=== PATIENT | female | born 1955 | race Caucasian/White ===

== ENCOUNTER 2019-11-04 04:41 | Inpatient (IN) | payer OTHER ==
[~2019-11-04] VITALS: Ht 167.6 cm; Wt 77.9 kg
[2019-11-04] MEDS ORDERED: PANTOPRAZOLE 40 MG/10 ML VIAL INJ IV STA (06:52)
[2019-11-04] MEDS ORDERED: LABETALOL HCL 5 MG/ML 4ML SYRINGE IV ONE (07:00)
[2019-11-04 08:41] LABS: Basophils # (auto) 0 10 ^3/uL (0-0.2); Basophils % (auto) 0.1 % (0.0-2.0); Eosinophils # (auto) 0 10 ^3/uL (0-0.8); Hematocrit 39.9 % (36.0-46.0); Hemoglobin 13.5 g/dL (12.2-16.2); Lymphocytes # (auto) 0.3 10 ^3/uL (0.4-5.4); Lymphocytes % (auto) 4.2 % (10.0-50.0); Mean Corpuscular Hemoglobin 33.1 pg (28.0-32.0); Mean Corpuscular Hgb Conc. 33.9 g/dL (32.0-36.0); Mean Corpuscular Volume 97.7 fL (80.0-100.0); Monocytes # (auto) 0.3 10 ^3/uL (0-1.3); Monocytes % (auto) 3.4 % (0.0-12.0); Neutrophils # (auto) 6.9 10 ^3/uL (1.6-8.6); Neutrophils % (auto) 92.3 % (37.0-80.0); Platelet Count (auto) 201 10^3/uL (140-450); Red Blood Cells 4.08 10^6/uL (4.0-5.20); Red Cell Distribution Width 12.6 % (11.8-14.3); White Blood Cell 7.5 10^3/uL (4.4-10.8)
[2019-11-04 08:55] LABS: Anion Gap 11 (5-15); Blood Urea Nitrogen 17 mg/dL (7-18); Calcium 9.3 mg/dL (8.5-10.1); Carbon Dioxide 26 mmol/L (21-32); Chloride 105 mmol/L (98-107); Glucose 217 mg/dL (74-106); Lipase 143 U/L (73-393); Magnesium 2.3 mg/dL (1.6-2.6); Potassium 3.1 mmol/L (3.5-5.1); Sodium 142 mmol/L (136-145)
[2019-11-04 09:04] LABS: Alanine Aminotransferase 47 U/L (13-56); Alkaline Phosphatase 118 U/L (45-117); Aspartate Aminotransferase 27 U/L (15-37); BUN/Creatinine Ratio 14.9; Bilirubin, Total 0.7 mg/dL (0.2-1.0); GFR African American 62 mL/min; GFR Non-African American 51 mL/min; Total Protein 8.1 g/dL (6.4-8.2)
[2019-11-04] MEDS ORDERED: dilTIAZem 25 MG/5 ML VIAL IV ONE (10:45)
[2019-11-04] MEDS: POTASSIUM CHL 20MEQ/100ML 100 ML IV SCH ×2 (11:55→13:46)
[2019-11-04] MEDS ORDERED: METOPROLOL TARTRATE 1MG/1ML-5ML VIAL IV ONE (12:00)
[2019-11-04] MEDS ORDERED: HYDROcodone-ACET 5/325MG TAB PO PRN (12:00)
[2019-11-04] MEDS ORDERED: MORPHINE SULF INJ 2 MG/ML SYRINGE 1ML IV PRN ×2 (12:00)
[2019-11-04] MEDS ORDERED: LORazepam 0.5 MG TAB PO PRN (12:00)
[2019-11-04] MEDS ORDERED: DOCUSATE SOD 100 MG CAP PO PRN (12:00)
[2019-11-04] MEDS ORDERED: ACETAMINOPHEN 325 MG TAB PO PRN (12:00)
[2019-11-04] MEDS ORDERED: NITROGLYCERIN 0.4 MG SL TAB SL PRN (12:00)
[2019-11-04] MEDS ORDERED: ONDANSETRON HCL 4 MG/2 ML VIAL IV PRN (12:00)
[2019-11-04] MEDS ORDERED: HYOS0.1269 SL (12:41)
[2019-11-04] MEDS ORDERED: CYAN1SUB5 SL (12:41)
[2019-11-04] MEDS ORDERED: METO-169 PO ×2 (12:41→23:25)
[2019-11-04] MEDS: SODIUM CHLOR 0.9% PF (SALINE LOCK) 10ML VIAL/SYR IV SCH ×2 (13:46→22:17)
[2019-11-04] MEDS ORDERED: DIGOXIN (250MCG/ML) 2 ML AMPULE IV ONE (15:45)
[2019-11-04 16:11] LABS: Cholesterol 167 mg/dL (< 200); Triglycerides 67 mg/dL (< 150)
[2019-11-04 16:13] LABS: HDL Cholesterol 47 mg/dL (40-59); LDL Cholesterol 117 mg/dL (< 100)
[2019-11-04] MEDS ORDERED: NOREPINEPHRINE BITARTRATE 16 MG in SODIUM CHL 0.9% 250 ML IV SCH (16:27)
[2019-11-04] MEDS ORDERED: PHENYLEPHRINE INJ 40 MG in SODIUM CHL 0.9% 250 ML IV SCH (16:27)
[2019-11-04 20:55] VITALS: BP 136/90
--- NOTE | 2019-11-04 20:55 | NUR ---
assumed care of pt at this time tranferred from er belinda black. Pt is alert and oriented x 4 sats well on room air, pleasant and cooperative, Iv 20 g to LAC saline locked. NAD noted, no c/o pain or discomfort at this time. Pt oriented to room and rountine.
[2019-11-04 21:00] VITALS: BP 132/75
[2019-11-04] MEDS: APIXABAN 2.5 MG TAB PO SCH (22:17)
[2019-11-04] MEDS: PANTOPRAZOLE 40 MG TAB PO SCH (22:18)
[2019-11-04] MEDS: METOPROLOL TARTRATE 25 MG TAB PO SCH (22:18)
[2019-11-04 23:27] VITALS: BP 132/75
[2019-11-05 05:00] VITALS: BP 108/70
[2019-11-05] MEDS: SODIUM CHLOR 0.9% PF (SALINE LOCK) 10ML VIAL/SYR IV SCH ×3 (05:44→22:00)
[2019-11-05 07:31] LABS: Basophils # (auto) 0 10 ^3/uL (0-0.2); Eosinophils # (auto) 0 10 ^3/uL (0-0.8); Hemoglobin 11.5 g/dL (12.2-16.2); Monocytes # (auto) 0.4 10 ^3/uL (0-1.3); Neutrophils # (auto) 6.2 10 ^3/uL (1.6-8.6); White Blood Cell 7.6 10^3/uL (4.4-10.8)
[2019-11-05 07:34] LABS: Basophils % (auto) 0.2 % (0.0-2.0); Hematocrit 33.6 % (36.0-46.0); Lymphocytes % (auto) 13.1 % (10.0-50.0); Mean Corpuscular Hemoglobin 33.9 pg (28.0-32.0); Mean Corpuscular Hgb Conc. 34.3 g/dL (32.0-36.0); Monocytes % (auto) 5.1 % (0.0-12.0); Neutrophils % (auto) 81.6 % (37.0-80.0); Platelet Count (auto) 161 10^3/uL (140-450); Red Cell Distribution Width 12.9 % (11.8-14.3)
[2019-11-05 07:45] LABS: Albumin 2.9 g/dL (3.4-5.0); Calcium 8.4 mg/dL (8.5-10.1); Magnesium 2.1 mg/dL (1.6-2.6); Potassium 3.5 mmol/L (3.5-5.1)
[2019-11-05 07:50] LABS: BUN/Creatinine Ratio 15.9; Bilirubin, Total 0.6 mg/dL (0.2-1.0); Total Protein 6.2 g/dL (6.4-8.2)
[2019-11-05 08:43] VITALS: BP 116/66
[2019-11-05] MEDS: METOPROLOL TARTRATE 25 MG TAB PO SCH (10:50)
[2019-11-05] MEDS: PANTOPRAZOLE 40 MG TAB PO SCH (10:50)
[2019-11-05] MEDS: APIXABAN 2.5 MG TAB PO SCH (10:50)
[2019-11-05 13:00] VITALS: BP 122/76
[2019-11-05 17:00] VITALS: BP 121/83
[2019-11-05 22:00] VITALS: BP 122/78
[2019-11-06 05:00] VITALS: BP 116/70
[2019-11-06] MEDS: SODIUM CHLOR 0.9% PF (SALINE LOCK) 10ML VIAL/SYR IV SCH (05:51)
--- NOTE | 2019-11-06 07:35 | NUR ---
SHIFT OPENING NOTE RECEIVED PATIENT LYING IN BED COMFORTABLY AND WAS IN NO DISTRESS. PATIENT AAOX4, PLEASANT, COOPERATIVE AND VOICED NO C/O PAIN AND WAS IN NO RESPIRATORY DISTRESS. SHIFT ASSESSMENT DONE AND CHARTED. PLAN OF CARE, MEDICATIONS TREATMENTS AND SAFETY DISCUSSED WITH PATIENT AND SHE VERBALIZED UNDERSTANDING. WILL CONTINUE TO MONITOR PATIENT.
[2019-11-06 08:44] VITALS: BP 119/79
--- NOTE | 2019-11-06 09:30 | NUR ---
MD AT BEDSIDE DR. CHASE WAS IN TO SEE PATIENT AND MD TALKED TO PATIENT ABOUT DISCHARGING HER TODAY WITH PRESCRIPTIONS TO BE FILLED UP BY [facility].
[2019-11-06] MEDS: APIXABAN 2.5 MG TAB PO SCH (10:18)
[2019-11-06] MEDS: PANTOPRAZOLE 40 MG TAB PO SCH (10:18)
[2019-11-06] MEDS: METOPROLOL TARTRATE 25 MG TAB PO SCH (10:18)
[2019-11-06] MEDS ORDERED: APIX2.5T PO (11:31)
[2019-11-06] MEDS ORDERED: MET25T PO (11:31)
[2019-11-06] MEDS ORDERED: PANT40T PO (11:31)
[2019-11-06 12:40] VITALS: BP 106/67
[2019-11-06 13:23] VITALS: BP 106/67
== END 2019-11-06 15:20 | disposition home or self-care (01) | DRG 310 ==
LOC: EDBD 04:41 → ER 04:46 → TELE 04:47 → TELE-WESTW 21:17
PROVIDERS: ATTEND Internal Medicine
DX: I48.91 Unspecified atrial fibrillation (principal); E78.5 Hyperlipidemia, unspecified; E87.6 Hypokalemia; I10 Essential (primary) hypertension; K21.9 Gastro-esophageal reflux disease without esophagitis; K44.9 Diaphragmatic hernia without obstruction or gangrene; K57.30 Diverticulosis of large intestine without perforation or abscess without bleeding; K76.89 Other specified diseases of liver; Z90.49 Acquired absence of other specified parts of digestive tract; R73.9 Hyperglycemia, unspecified
CPT/HCPCS: 36415; 71045; 74176; 80053; 80061; 83036; 83690; 83735; 83880; 84443; 84484; 85025; 85379; 87081; 93005; 93306; C9113; G0378; J3480; J3490